=== PATIENT | male | born 1960 | race Caucasian/White ===

== ENCOUNTER 2018-03-01 23:01 | Emergency (ER) | payer OTHER ==
[~2018-03-01] VITALS: Ht 175.3 cm; Wt 158.8 kg
--- NOTE | ~2018-03-01 | EKG ---
[place] [address] [address] [facility] [place] [address] ELECTROCARDIOGRAM REPORT Name: ELY SKELTON [facility]: [facility] [id number] Admission: 03/01/18 Attend Phys: Discharge: 03/02/18 Date of : 60 Report #: [id number] THIS REPORT FOR: //name// [facility] ED Test Date: 2018-03-02 Test Time: 00:31:20 Pat Name: ELY SKELTON Department: Room: Gender: [employer]: kaleigh : 1960 Requested By: Isa Sykes Order Number: [id number] MD: Michael Ko Measurements Intervals [place] Rate: 62 P: 28 WY: 195 QRS: -18 QRSD: 107 T: 48 QT: 426 QTc: 433 Interpretive Statements Sinus rhythm Poor R wave progression No previous ECG available for comparison Electronically Signed On 03-04-2018 7:48:56 CDT by Michael Ko [email or web address] <ELECTRONICALLY SIGNED> By: Michael Ko MD, [facility] 03/04/18 0748 0031 0031 Michael Ko MD, FACC /EPI
[2018-03-02 00:32] LABS: ABSOLUTE NEUTROPHILS 4.1 thou/uL (1.4-8.2); BASOPHILS 0.7 % (0.0-2.0); EOSINOPHILS 3.2 % (0.0-3.0); HEMATOCRIT 34.1 % (42.0-52.0); HEMOGLOBIN 11.4 gm/dL (14.0-18.0); LYMPHOCYTES 29.5 % (24.0-44.0); MCH 28.3 pg (26.0-34.0); MCHC 33.4 g/dL (28.0-37.0); MCV 84.5 fL (80.0-100.0); MONOCYTES 7.6 % (1.0-8.0); PLATELET COUNT 250 thou/uL (150-400); RBC 4.04 mil/uL (4.50-6.00); RDW 15.2 % (10.5-14.5); WBC 6.9 thou/uL (4.0-11.0)
[2018-03-02 00:48] LABS: ANION GAP 10 mmol/L (7-16); BUN 16 mg/dL (7-18); CALCIUM 8.2 mg/dL (8.5-10.1); CHLORIDE 101 mmol/L (98-107); CO2 29 mmol/L (21-32); CREATININE 1.4 mg/dL (0.7-1.3); GLUCOSE 100 mg/dL (74-106); POTASSIUM 3.3 mmol/L (3.5-5.1); SODIUM 140 mmol/L (136-145); TROPONIN-I < 0.04 ng/mL (<0.06)
[2018-03-02] MEDS ORDERED: IBUPROFEN 400400 M2 PO (00:49)
[2018-03-02 04:03] VITALS: BP 133/88
== END 2018-03-02 03:20 | disposition home or self-care (01) ==
LOC: ER 23:01
PROVIDERS: Emergency Medicine
DX: M79.602 Pain in left arm (principal); E87.6 Hypokalemia; M54.12 Radiculopathy, cervical region